=== PATIENT | male | born 1930 | race Caucasian/White ===

== ENCOUNTER 2017-01-11 14:00 | Inpatient (IN) | payer MEDICARE, OTHER ==
[~2017-01-11] VITALS: Ht 177.8 cm; Wt 103.6 kg
--- NOTE | ~2017-01-11 | CON ---
PATIENT'S NAME: MAYLIN VILLAFUERTE [facility] AGE: 86 Y [address] ROOM: [place] [address] LOCATION: [facility] ADMIT DATE: 01/11/2017 Consultation DISCHARGE DATE: FAMILY PHYSICIAN: Christiano Bull MD ATTENDING PHYSICIAN: Linda Guaman REQUESTING PHYSICIAN: This is a consult for Dr. Guaman. HISTORY OF PRESENT ILLNESS: This 86-year-old gentleman is referred for rehabilitation evaluation/GIRP evaluation and admission. He is status post lumbar laminectomy, L1-L2 to relieve spinal stenosis on 01/14/2017, details on the record per Dr. Guaman. He was originally seen for left leg weakness of slow progression. He recently could not stand anymore on the left leg, was falling with decreased sensation through the whole left lower extremity. He did fall frequently maybe at least twice severely without hitting his head, but he felt pain in the left hip. PAST HISTORY OF SIGNIFICANCE: 1. Coronary artery disease, status post CABG x2. First one in the 1971 and second one in 1991. 2. History of paroxysmal atrial fibrillation, on Coumadin at one time. 3. Severe lumbar spinal stenosis, status post surgical procedure. Exact procedure unknown at this time for me. 4. Status post diabetes type 2. 5. 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 6. COPD. 7. Asthma. 8. Gastric reflux disease. 9. Sleep apnea. 10. Dementia. 11. Obesity. He is now alert, oriented, slow in his response and answers but proper. He is now resting, complaining of left hip pain. He cannot move his left lower extremity good at this time. Muscle strength at best is 3 to 3+ with decreased endurance and decreased sensation throughout. Deep tendon reflexes are slow on both sides, left side weaker in knee and ankle. There is no increased tone. Babinski is equivocal. PATIENT'S NAME: MAYLIN VILLAFUERTE [facility] AGE: 86 Y [address] ROOM: [address] [address] LOCATION: [facility] ADMIT DATE: 01/11/2017 Consultation DISCHARGE DATE: FAMILY PHYSICIAN: Christiano Bull MD ATTENDING PHYSICIAN: Linda Guaman PHYSICAL EXAMINATION: VITAL SIGNS: Blood pressure 136/71, temperature 98.6, pulse 90, and respiratory rate 16. He is 5 feet 10 inches tall. Weighs 103.6 kg. NEUROLOGIC: Cranial nerves 2 through 12 are within normal limits. Can move bilateral upper extremities without much difficulty. Muscle strength is 4 to 4+/5. Bilateral lower extremity, he has markedly weak left lower extremity as I mentioned. CURRENT MEDICATIONS: At this time, he is on the following medications: 1. Coumadin. 2. Tramadol. 3. MOM. 4. Fleets. 5. Dulcolax. 6. NaCl 0.9%. 7. Zofran. 8. Valium. 9. Morphine sulfate. 10. Aldactone. 11. Colace. 12. MiraLAX. 13. Theragran-M. 14. Albuterol sulfate. 15. Theophylline. 16. Uloric. 17. Protonix. 18. Imdur. 19. Dulera. 20. Pacerone. 21. Aricept. 22. Glucagon. 23. Glucose. 24. Dextrose. 25. Insulin aspartate mild scale. 26. [place]. ASSESSMENT AND PLAN: Now he is with maximum to moderate assist of one in transfers and cannot really carry weight on the left lower extremity. We will continue his PT, OT, and speech already initiated. I plan to take him PATIENT'S NAME: MAYLIN VILLAFUERTE [facility] AGE: 86 Y [address] ROOM: [place] [address] LOCATION: [facility] ADMIT DATE: 01/11/2017 Consultation DISCHARGE DATE: FAMILY PHYSICIAN: Christiano Bull MD ATTENDING PHYSICIAN: Linda Guaman to rehabilitation for about 3 weeks of intensive rehabilitation, we will brace him as necessary. Do electrical stimulation as necessary. All the above was discussed in detail with him, his and his daughter. They verbalized understanding and agreement. Thank you for this referral. I will get him to rehabilitation for intensive rehabilitation if he is okayed. MD JOSE ELIAS SCHROEDERS/modl /[id number] d: 01/16/[id number] t: 01/18/17 0710, CONSULTATION REPORT
--- NOTE | ~2017-01-11 | CON ---
PATIENT'S NAME: MAYLIN VILLAFUERTE [facility] AGE: 86 Y [address] ROOM: [address] [address] LOCATION: [facility] ADMIT DATE: 01/11/2017 Consultation DISCHARGE DATE: FAMILY PHYSICIAN: PHYSICIAN, UNKNOWN ATTENDING PHYSICIAN: Linda Guaman CHIEF COMPLAINT: Lower back pain with radiation to the left lower extremity as well as numbness and also muscle weakness in the left lower extremity. REASON FOR CONSULTATION: Medical management and also preoperative clearance in case the patient will require surgery for the lumbar spinal stenosis. HISTORY OF PRESENT ILLNESS: This is an 86-year-old male, who was transferred from outside facility over here for severe lumbar spinal stenosis, which causes problems with lower back pain with radiation to the left lower extremity as well as numbness and also muscle weakness in the left lower extremity. The patient was referred over here for Neurosurgery care for possible lumbar laminectomy and decompression. We are being asked to help with medical management and preoperative evaluation. Currently, the only symptom patient complains is lower back pain with radiation to the left lower extremity associated with numbness and some muscle weakness in the left lower extremity. He denies any chest pain or shortness of breath on exertion or at rest. At baseline, patient is a functional individual with METS score more than 4. REVIEW OF SYSTEMS: As mentioned in the history of present illness. All other systems were reviewed and were negative except those mentioned in the history of present illness. PAST MEDICAL HISTORY: 1. Coronary artery disease, status post bypass surgery twice, first one in 1971, second one in 1991. 2. Paroxysmal atrial fibrillation, on Coumadin. 3. Severe lumbar spinal stenosis. 4. Diabetes type 2. 5. History of congestive heart failure, likely systolic type given that he is on Aldactone at home. 6. COPD. 7. Asthma. 8. Gastroesophageal reflux disease. PATIENT'S NAME: MAYLIN VILLAFUERTE [facility] AGE: 86 Y [address] ROOM: [address] [place] [id number] LOCATION: [facility] ADMIT DATE: 01/11/2017 Consultation DISCHARGE DATE: FAMILY PHYSICIAN: , UNKNOWN ATTENDING PHYSICIAN: Linda Guaman 9. Obstructive sleep apnea, and he wears 2.5 L of oxygen nasal cannula at night during sleep. 10. Dementia. 11. Questionable history of lung asbestosis in the past. 12. 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 ALLERGIES: IODINE AND PENICILLIN. PENICILLIN CAUSES HIVES. IODINE, HE DOES NOT REMEMBER WHAT REACTION. HOME MEDICATIONS: Has to be reconciled again by the medical staff in the morning given that the current medication list is incomplete. SOCIAL HISTORY: The patient was a former cigarette smoker. He quit about 70 years ago. He states has he smoked about half per day around 5 to 6 years. He denies any alcohol or any illegal drug use. FAMILY HISTORY: Father has diabetes and also heart problem, but details not clear. Mother has cancer but not sure which type. PAST SURGICAL HISTORY: 1. Right hip surgery. 2. Open heart surgery x2. 3. Appendectomy. 4. Rotator cuff surgery. 5. Umbilical hernia surgery. 6. Cervical spine fusion in the past. PHYSICAL EXAMINATION: VITAL SIGNS: At the time of my evaluation, temperature was 98 and saturation was 96% on 2 L nasal cannula, blood pressure 132/86, respiration 14, heart rate 65. GENERAL APPEARANCE: Alert and oriented x3. Currently, in no acute distress. HEENT: Pupils are equally round and reactive to light. Extraocular muscles intact. Anicteric sclerae. Nasal turbinates are normal bilaterally. Moist oral mucosa. NECK: No JVD. CARDIOVASCULAR: Irregularly irregular rate and rhythm. No murmur, no rubs, no gallops. RESPIRATORY: Clear to auscultation. No rales. No rhonchi. No wheezing. No crackles. PATIENT'S NAME: MAYLIN VILLAFUERTE [facility] AGE: 86 Y [address] ROOM: [address] [address] LOCATION: [facility] ADMIT DATE: 01/11/2017 Consultation DISCHARGE DATE: FAMILY PHYSICIAN: PHYSICIAN, UNKNOWN ATTENDING PHYSICIAN: Linda Guaman ABDOMEN: Obese, soft, nontender, nondistended. Bowel sounds present. No mass. EXTREMITIES: No edema in upper or lower extremities. SKIN: No ulcer, no rash, no cyanosis. NEUROLOGIC: Some decreased sensation and left lower extremity weakness 3/5. Otherwise unremarkable. LABORATORY DATA: CPK 82, troponin less than 0.04, ProBNP 497. White blood cells 6.1, hemoglobin 14.4, hematocrit 43.5, platelet 194. Glucose 118, BUN 25, creatinine 1.5, sodium 142, potassium 4.0, chloride 109, CO2 of 26, calcium 8.3. Total protein 6.9, albumin 3.2, AST 13, ALT 16, alkaline phosphatase 93, total bilirubin 0.3. Anion gap 11, globulin 3.7, A1c 6.6. INR 2.0, PTT 33. GFR 41. CK-MB 2.2. Pre-albumin 28. IMAGING STUDY: Chest x-ray on admission performed from the outside facility based on my review, unremarkable. EKG on admission on January 11, 2017 at 7:14 p.m. shows atrial fibrillation, heart rate of 54 beats per minute, QRS of 98 milliseconds. ASSESSMENT AND PLAN: 1. Regarding his severe lumbar spinal stenosis: Defer to Neurosurgery for further care. Currently, the date of surgery is not clear. Therefore, we will hold the Coumadin, but I am not going to reverse the INR given that we are not sure when is the surgery. Once the date of the surgery is confirmed, we can use vitamin K and fresh frozen plasma to reverse INR to reach the goal of less than 1.5. 2. Regarding his preoperative medical evaluation for noncardiac surgery: From the guideline of the preoperative medical evaluation for noncardiac surgery, the patient currently does not have any active contraindication that will require further additional testing. His METS score is more than 4. He does have a history of coronary artery disease, requiring 2 bypass surgeries in the past, but they are very remote, and he has been doing well without any chest pain since then. His most recent echo with his primary maple products supervisor in [place] was 2 years ago, and it was normal according to the patient. Currently, the patient has no chest pain, no shortness of breath, and there is no finding to suggest heart failure either. EKG showed atrial fibrillation, which is not new for him. The patient is asymptomatic, therefore, the patient does not have any active contraindication at the moment that will require any additional testing before the surgery. However, the patient is at high risk of perioperative and postoperative period for cardiopulmonary complications given the patient's age, prior history of coronary artery disease, history of atrial fibrillation, diabetes, PATIENT'S NAME: NOYKATHI CUMMINGSLinda Watkins [facility] AGE: 86 Y [address] ROOM: [address] [address] LOCATION: [facility] ADMIT DATE: 01/11/2017 Consultation DISCHARGE DATE: FAMILY PHYSICIAN: PHYSICIAN, UNKNOWN ATTENDING PHYSICIAN: Linda Guaman history of chronic systolic congestive heart failure, chronic obstructive pulmonary disease, asthma, and requiring oxygen for sleep apnea with 2.5 L at night. All these comorbidities put the patient at high risk for perioperative and postoperative periods for cardiopulmonary complications. However, as mentioned before, per the guideline of the preoperative medical evaluation for noncardiac surgery, the patient does not require any additional testing before the surgery. The patient understands all the risks of his potential complications that may happen during and after surgery. Further plan will depend on clinical course. 3. Regarding his acute kidney injury or chronic kidney disease: We do not have any records to compare whether he has acute kidney injury or chronic kidney disease. However, I am going to give him IV fluid for hydration given that his BUN is also high, therefore, this is most likely acute kidney injury from prerenal azotemia. Therefore with hydration, we will see how he responds. I will be checking urine electrolytes as well. We will also check a urinalysis, and also Barber catheter insertion for strict in's and out's monitor and rule out postobstructive causes of the acute kidney injury. 4. Regarding his diabetes type 2: We will check A1c, put him on sliding scale insulin with NovoLog a.c., h.s. mild dose while eating, and while n.p.o. we will be using the regular subcutaneous insulin q.4 hours mild dose and titrate as needed. 5. Regarding his history of chronic obstructive pulmonary disease and asthma: Currently, they are not in flare. Continue with nebulizations per RT for RSS and continue Symbicort. 6. Regarding his history of obstructive sleep apnea: Continue oxygen nasal cannula at night 2.5 L or more titrate to saturation more than 94%. 7. Regarding his history of chronic systolic congestive heart failure: Currently, he is not in decompensation. Continue gentle IV fluid hydration for acute kidney injury. Home medications have to be reconciled in the morning before they can be addressed. 8. Regarding his history of paroxysmal atrial fibrillation: Continue home medication including amiodarone, but we will hold the Coumadin in anticipation for possible surgery. 9. Regarding his dementia: Continue Aricept but hold if heart rate less than 60. 10. Regarding his deep venous prophylaxis: He is already on Coumadin. INR is 2.0. Time spent in care on the day of consultation 55 minutes where 10 minutes were spent on chart review, the remainder of the time was spent in interview and physical examination and also on counseling. The counseling includes going on plan of care with the patient and addressing all the questions and concerns that he had to his satisfaction. Further plan will depend on clinical course. PATIENT'S NAME: MAYLIN VILLAFUERTE [facility] AGE: 86 Y [address] ROOM: [place] [address] LOCATION: [facility] ADMIT DATE: 01/11/2017 Consultation DISCHARGE DATE: FAMILY PHYSICIAN: PHYSICIAN, UNKNOWN ATTENDING PHYSICIAN: Linda Guaman PACO MCCARTHY MD CC/dorian /[id number] d: 01/12/17 0119 t: 01/22/17 2123, CONSULTATION REPORT
--- NOTE | ~2017-01-11 | HP ---
PATIENT'S NAME: MAYLIN VILLAFUERTE [facility] AGE: 86 Y [address] ROOM: [address] [place], [place] [address] LOCATION: [facility] ADMIT DATE: 01/11/2017 History & Physical DISCHARGE DATE: FAMILY PHYSICIAN: PHYSICIAN, UNKNOWN ATTENDING PHYSICIAN: Linda Guaman DATE OF SERVICE: 01/11/2017 PATIENT IDENTIFICATION: Maylin Villafuerte is an 86-year-old male. PRESENTING COMPLAINT: Left leg weakness. HISTORY OF PRESENT ILLNESS: The patient's symptoms have been coming on slowly and at first he thought it was his hip. Yesterday, he was hobbling around, but since today he has been unable to stand or move his left leg. The patient has had multiple falls this week on account of progressive weakness of the left leg. The patient had a lumbar MRI scan which showed severe spinal stenosis. He was therefore referred to me for evaluation and treatment. He was originally supposed to see me in the outpatient clinic next week, but because his symptoms have gotten so severe, he came in as an inpatient today. PAST MEDICAL HISTORY: The patient had previous spinal fusion from L3-L5 about a year ago. His surgery was performed by Dr. Feng out [facility]. Other medical problems include previous cervical spinal fusion, right total hip replacement, and coronary artery bypass graft. Other past medical history includes atrial fibrillation, previous appendectomy, previous rotator cuff repair, removal of pilonidal cyst, and umbilical hernia repair. CURRENT MEDICATIONS: 1. Amitiza. 2. Lasix. 3. Cordarone. 4. Glipizide. 5. Aldactone. 6. Aricept. 7. Symbicort. 8. [place]. 9. Potassium chloride. 10. Warfarin. 11. Uloric. PATIENT'S NAME: MAYLIN VILLAFUERTE [facility] AGE: 86 Y [address] ROOM: [address] [place], [place] [address] LOCATION: [facility] ADMIT DATE: 01/11/2017 History & Physical DISCHARGE DATE: FAMILY PHYSICIAN: PHYSICIAN, UNKNOWN ATTENDING PHYSICIAN: Linda Guaman 12. Pro-Air. 13. Imdur. 14. Colace. 15. Protonix. 16. Mickey-[place]. 17. Albuterol. 18. Nitroglycerin as needed. ALLERGIES: IODINE AND PENICILLIN. FAMILY HISTORY: Remarkable for diabetes and organic heart disease in his father and brother, and cancer in the mother and sister. SOCIAL HISTORY: The patient is . He is a former smoker. He does not use alcohol. REVIEW OF SYSTEMS: All the systems were reviewed. The only abnormal findings as described in the history of present illness. PHYSICAL EXAMINATION: GENERAL: The patient is a healthy-looking gentleman who was alert and cooperative through the examination. VITAL SIGNS: Today, blood pressure is 130/67, heart rate is 54, respirations 16, temperature 97.8, saturations 96. NEUROLOGIC: His speech is intact. Cranial nerves no deficits seen. Motor examination, the patient has normal strength in his upper extremities and his lower extremities, right hip is 3+/5, left hip 0/5. Quadriceps 5/5 on the right side. Unable to raise leg on the left side. Dorsiflexors 4 on the right, 3 on the left. Plantar flexors 4 on the right and 3 on the left. CARDIOVASCULAR: Heart sounds are present. RESPIRATORY: The patient is not short of breath at bedside. EXTREMITIES: The patient has no cyanosis or clubbing. SKIN: The patient has some skin bruising from being on Coumadin, especially on the inside of the right arm. HEENT: His head is atraumatic. Eyes and ears, no evidence of trauma. REVIEW OF IMAGING STUDIES: The patient has had a lumbar spine MRI performed on January 08, 2017. The MRI shows severe spinal stenosis at the L2-3 level, just one level above where the patient had prior of fusion. LABORATORY INVESTIGATIONS: PATIENT'S NAME: MAYLIN VILLAFUERTE [facility] AGE: 86 Y [address] ROOM: [address] [address] LOCATION: [facility] ADMIT DATE: 01/11/2017 History & Physical DISCHARGE DATE: FAMILY PHYSICIAN: PHYSICIAN, UNKNOWN ATTENDING PHYSICIAN: Linda Guaman White count is 6.4, hemoglobin is 15. INR is 2.2, it will need to be held prior to the time of surgery. I have held it effective today. Sodium 143, potassium 4.2, chloride 106. BUN 28, creatinine 1.60. ASSESSMENT: An 86-year-old male with back pain and left leg weakness. MRI scan shows severe spinal stenosis on the L2-3 level, one level below the site of patient's previous fusion. MEDICAL DECISION MAKING: I discussed the problem with the patient and explained to him that he will likely need laminectomy and decompression. The patient's family coming by tomorrow and when everybody is here, I will sit down and go over the benefits, risks, and alternatives with them. I have also asked the hospitalist to see the patient to help manage his diabetes and also for preoperative clearance. I look forward to being able to perform the patient's laminectomy to provide him some room for his pinched nerves. We will also get a cervical spine MRI to rule out cervical myelopathy. MD INA ADAMS/modl /[id number] D: [id number] T: [id number] HISTORY & PHYSICAL
--- NOTE | ~2017-01-11 | DS ---
PATIENT'S NAME: MAYLIN VILLAFUERTE [facility] AGE: 86 Y [address] ROOM: [address] [address] LOCATION: G3 ADMIT DATE: 01/11/2017 Discharge Summary DISCHARGE DATE: 01/19/2017 FAMILY PHYSICIAN: Christiano Bull MD ATTENDING PHYSICIAN: Linda Guaman Transferred to inpatient rehab on January 19, 2017. REASON FOR ADMISSION: The patient is an 86-year-old gentleman who presented with difficulty walking and left leg weakness. MRI scan showed severe spinal stenosis. TREATMENT RENDERED: The patient was admitted to the hospital and was scheduled for surgery. Prior to having surgery, he had to be medically cleared. He eventually was taken to the operating room on January 14, 2017. He underwent bilateral laminectomy with decompression of neural elements and foraminotomy without diskectomy at L1-L2 level. The patient had undergone prior spinal fusion from L3 to L5 and this stenosis was right above where he had his previous fusion. During the surgery, the patient had a spinal fluid leak, which was repaired. Postoperatively, the patient did well. His left leg weakness started to improve. He was helped by Physical Therapy. He was evaluated and found to be acceptable to inpatient rehab. The patient was transferred to rehab on January 19, 2017. The patient also has cervical spinal stenosis, and after he has recovered from this lumbar laminectomy, he will likely need cervical decompression as well. He has had prior cervical fusion also. FINAL DIAGNOSES: 1. Lumbar spinal stenosis. 2. Cervical spinal stenosis. 3. Status post lumbar laminectomy and decompression. MD RESHMA ADAMSO/martl /[id number] d: t: 02/04/17 0035, DISCHARGE SUMMARY
--- NOTE | ~2017-01-11 | OR ---
PATIENT'S NAME: MAYLIN [facility]AFU[facility]TE [facility] AGE: 86 Y [address] ROOM: [address] [address] LOCATION: [facility] ADMIT DATE: 01/11/2017 OR/Procedure Report DISCHARGE DATE: FAMILY PHYSICIAN: Christiano Bull MD ATTENDING PHYSICIAN: Linda Guaman SURGEON: Linda Guaman MD COLLEGE ADMISSIONS COUNSELOR: Karolina Matson CST. DATE OF PROCEDURE: 01/14/2017 PREOPERATIVE DIAGNOSIS: Lumbar spinal stenosis. POSTOPERATIVE DIAGNOSIS: Lumbar spinal stenosis. PROCEDURE PERFORMED: 1. Bilateral laminectomy with decompression of neural elements and foraminotomy without diskectomy at L1-L2. 2. Repair of spinal fluid leak intraoperatively. 3. Use of operative microscope. ANESTHESIA: General. HISTORY: The patient is an 86-year-old gentleman, who was admitted with left leg weakness. The patient has had prior lumbar laminectomy and fusion. MRI scan done showed previous spinal fusion from L3-L5. The patient also had severe spinal stenosis at the L1-L2 level. With the patient's left leg weakness and the severity of his stenosis, surgery was recommended. The above procedure, benefits, and risks were discussed with the patient and his family and with their consent, he was brought to the operating room for surgery. Prior to coming to surgery, he had been cleared by internal medicine for his comorbidities. PROCEDURE IN DETAIL: In the operating room, the patient was placed in a supine position. Anesthesia was induced and he was intubated. He was then carefully rolled to a prone position on a Davy table taking care to protect all pressure points. His incision line was marked out as an extension of the previous lumbar incision on his back. The whole area was prepped and draped in a sterile fashion. Local anesthesia was infiltrated. The incision was opened with a #10 blade, and self-retaining retractors were placed. The Bovie was then used to open the fascia and deepen the incision until the tip of the spinous process of L1 was confidently identified. Paraspinous muscles were dissected off the spinous process and lamina of L1. We then identified the edges of the L2 laminectomy, which had been performed previously. Working very carefully, the edges of the laminectomy were exposed and we were able to see the hardware that was used for the patient's spinal fusion surgery. Intraoperative x-ray was obtained at this point, to verify that we were at the PATIENT'S NAME: MAYLIN VILLAFUERTE [facility] AGE: 86 Y [address] ROOM: [id number] [place], [place] [address] LOCATION: [facility] ADMIT DATE: 01/11/2017 OR/Procedure Report DISCHARGE DATE: FAMILY PHYSICIAN: Christiano Bull MD ATTENDING PHYSICIAN: Linda Guaman L1-L2 level which was where the patient had severe stenosis. Laminectomy was then commenced by removing the laminae of the L1 vertebra. Working from the intact area to the area where the patient has had surgery. The rongeur was used to remove the spinous process and lamina of L1. The dura was exposed. Working from rostral to caudal, more dura was exposed. It was necessary to remove some parts of the edges of the L2 vertebra to get full decompression. The patient was exceedingly stenotic at the L1-L2 level. While removing some of the lamina from the edge of the L2 lamina on the left side, an unintended durotomy occurred. Initially, it was on arachnoid bulge, but during the surgery the arachnoid bulge began to leak spinal fluid. I therefore felt that a formal dural repair was necessary. Microscope was brought in at this point, and under microscopic vision, the area of dural suppression was repaired with 5-0 Nurolon. Father decompression continued into the foramina. The L1-L2 foramina on both sides was identified and the nerve roots were seen. Decompression continued until some of the scar tissue over L2 was removed to fully decompress the dura. At the end of the procedure, I felt that the laminectomy had achieved this proposal for relieving stenosis at L1-L2. The incision was then copiously irrigated and hemostasis was achieved. The edges of the laminectomy were waxed thoroughly. The piece of dura repair was laid over the area where the dura had been repaired. The incision was then closed in layers using appropriate suture materials. A sterile dressing was applied. The patient was rolled back to a supine position. His anesthesia was reversed. He was extubated and taken to the recovery room to complete his recovery. I was present and performed every aspect of this procedure, assisted at different stages by operating room nurses. There were no apparent intraoperative complications. Swabs, needles, and instruments were all accounted for at the end of the case. Estimated blood loss was less than 500 mL and there was no reason for blood transfusion. I expect the patient to benefit from this procedure, but his recovery is likely to be slow given the severity of his compression and the amount of disability he had going into surgery. MD INA ADAMS/dorian PATIENT'S NAME: MAYLIN VILLAFUERTE [facility] AGE: 86 Y [address] ROOM: [place] [address] LOCATION: [facility] ADMIT DATE: 01/11/2017 OR/Procedure Report DISCHARGE DATE: FAMILY PHYSICIAN: Christiano Bull MD ATTENDING PHYSICIAN: Linda Guaman /[id number] d: [birth year] t: 01/20/17 1700, OPERATIVE SUMMARY
[2017-01-11] MEDS ORDERED: PROAIR RESPICL90 MCG INH (16:57)
[2017-01-11] MEDS ORDERED: CORDARONE,PACE200 MG PO (16:58)
[2017-01-11] MEDS ORDERED: SYMBICORT 16010.2 GM INH (17:00)
[2017-01-11] MEDS ORDERED: GLUCOTROL10 MG PO (17:01)
[2017-01-11] MEDS ORDERED: ARICEPT 5 MG5 MG PO (17:01)
[2017-01-11] MEDS ORDERED: MACULAR VITAMI1 EACH PO (17:06)
[2017-01-11] MEDS ORDERED: PROTONIX40 MG PO (17:08)
[2017-01-11] MEDS ORDERED: ALDACTONE25 MG PO (17:09)
[2017-01-11] MEDS ORDERED: MIRALAX17 GM PO (17:09)
[2017-01-11] MEDS ORDERED: THEODUR PO (17:12)
[2017-01-11] MEDS ORDERED: IMDUR60 MG PO (17:13)
[2017-01-11] MEDS ORDERED: K-TAB 10MEQ10 MEQ PO (17:14)
--- NOTE | 2017-01-11 17:31 | NUR ---
Patient is interesting 86 yo male admitted this evening for c/o back pain and inability to move left leg. patient states he wasn't doing too badly. yesterday he came to [employer] for his and another woman to shop. He states he stayed in the care for most of the time. did use a walker to "hobble around". states that sometime during the night, his left butt cheek went numb. states he was not able to get up this am. cannot move left leg voluntarily. saline lock is noted in right forearm without erythema or edema noted at the site. patient is pleasant and answers questions well. does have INAJA. education is given as documented. patient denies questions. pneumatics are on bilat calves. pt geoffrey well. red socks on patient. report is given to JERMAINE John.
[2017-01-11 19:19] LABS: BASOPHIL % 0.5 %; EOSINOPHIL # 0.1 K/uL (0.0-0.5); EOSINOPHIL % 1.6 %; HEMATOCRIT 43.5 % (33.0-50.0); HEMOGLOBIN 14.4 g/dL (11.0-16.0); IMMATURE GRANULOCYTE % 0.2 %; LYMPHOCYTE # 2.4 K/uL (0.8-4.0); LYMPHOCYTE % 39.5 %; MCH 32.3 pg (27.0-34.0); MCHC 33.1 gm/dL (32.0-36.5); MCV 97.5 fl (83.0-98.0); MONOCYTE # 0.6 K/uL (0.0-1.0); MONOCYTE % 10.5 %; MPV 8.4 fl (9.4-12.4); NEUTROPHIL # (ANC) 2.9 K/uL (1.4-9.0); NEUTROPHIL % 47.7 %; NRBC % 0 /100WBC (0-0.00); PLATELET COUNT 194 K/uL (150-450); RBC 4.46 M/uL (3.50-5.50); RDW-CV 15.1 % (11.9-14.6); WBC 6.1 K/uL (4.0-11.0)
--- NOTE | 2017-01-11 19:27 | NUR ---
Significant Event: ARRIVED TO ROOM AT 1530...UNABLE TO LIFT LEFT LEG OFF BED, DORSAL/PLANTER FLEXION WEAK ON L) STRONG ON RIGHT...HAND GRASP STRONG. HAD CHEST PAIN THIS AM, BUT CRADIAC WORKUP WAS NEG, HAS NUMEROUS HEALTH PROBLEMS.. Follow up:
[2017-01-11 19:31] LABS: PROTIME 21.1 SECONDS (9.8-11.4); PTT 33 SECONDS (25-32)
[2017-01-11 19:38] LABS: ALBUMIN 3.2 gm/dL (3.5-5.0); CALCIUM 8.3 mg/dL (8.5-10.5); CREATININE 1.5 mg/dL (0.6-1.3); TOTAL BILIRUBIN 0.3 mg/dL (0.0-1.5); TOTAL PROTEIN 6.9 g/dL (6.0-8.4)
[2017-01-11 21:33] LABS: CPK 82 IU/L (35-332)
[2017-01-12 01:58] LABS: BILIRUBIN URINE NEGATIVE (NEGATIVE); BLOOD URINE 10 /UL (NEGATIVE); COLOR URINE YELLOW (YELLOW); GLUCOSE URINE NEGATIVE (NEGATIVE); KETONE URINE NEGATIVE (NEGATIVE); LEUKOCYTES URINE NEGATIVE /UL (NEGATIVE); NITRITE URINE NEGATIVE (NEGATIVE); PROTEIN URINE 30 mg/dL (NEGATIVE); TURBIDITY URINE CLEAR (CLEAR); UROBILINOGEN URINE NORMAL (NORMAL)
[2017-01-12 02:08] LABS: RBC URINE RARE #/HPF (NEGATIVE); WBC URINE NEGATIVE #/HPF (NEGATIVE)
[2017-01-12 02:09] LABS: BACTERIA URINE NEGATIVE (NEGATIVE); EPITHELIAL URINE 0-2 #/HPF (NEGATIVE)
--- NOTE | 2017-01-12 05:12 | NUR ---
SIGNIFICANT EVENT: Pt alert &oriented. Bedrest. Bradycardic - heart and BP meds held at HS. ACHS accuchecks - No coverage for 112 BG. Unable to move L) leg, numb and tingling - plan for surgery Saturday. Daughter is [place]. Tele on, no calls. Barber placed and patent. ADA diet. Pleasant and cooperative with cares.
[2017-01-12 07:59] LABS: INR - (THERAPEUTIC) 1.77 (0.92-1.07); PROTIME 18.7 SECONDS (9.8-11.4)
[2017-01-12] MEDS ORDERED: AMITIZA24 MCG PO (07:59)
[2017-01-12] MEDS ORDERED: NORCO 5-325 TA1 EACH PO (08:01)
[2017-01-12] MEDS ORDERED: LASIX80 MG PO (08:01)
[2017-01-12] MEDS ORDERED: ULORIC80 MG PO (08:02)
[2017-01-12] MEDS ORDERED: COUMADIN ** IA5 MG PO (08:02)
[2017-01-12 08:03] LABS: ANION GAP 10.1 (10.0-19.0); CALCIUM 8.6 mg/dL (8.5-10.5); CREATININE 1.3 mg/dL (0.6-1.3); POTASSIUM 4.1 mMol/L (3.7-5.1)
[2017-01-12] MEDS ORDERED: COLACE100 MG PO (08:03)
[2017-01-12] MEDS ORDERED: PROAIR HFA8.5 GM INH (08:04)
[2017-01-12] MEDS ORDERED: NITROSTAT 0.40.4 MG PO (08:05)
--- NOTE | 2017-01-12 12:48 | NUR ---
(-)MST; VISITED WITH PT AND HE REPORTS THAT HE LOST 40 LBS ABOUT 2 YEARS AGO WHEN HE WAS SICK. WT HAS BEEN STABLE SINCE THAT INITITAL LOSS. PT REPORTS THAT HIS APPETITE IS GOOD, "PROBABLY TOO GOOD." WILL ASSIST NEEDED
[2017-01-12 17:17] LABS: BASOPHIL % 0.6 %; EOSINOPHIL # 0.1 K/uL (0.0-0.5); EOSINOPHIL % 1.7 %; HEMATOCRIT 40.5 % (33.0-50.0); HEMOGLOBIN 13.4 g/dL (11.0-16.0); IMMATURE GRANULOCYTE % 0.1 %; LYMPHOCYTE % 27.6 %; MCH 32.4 pg (27.0-34.0); MCHC 33.1 gm/dL (32.0-36.5); MCV 97.8 fl (83.0-98.0); MONOCYTE # 0.6 K/uL (0.0-1.0); MONOCYTE % 8.2 %; MPV 8.7 fl (9.4-12.4); NEUTROPHIL # (ANC) 4.5 K/uL (1.4-9.0); NEUTROPHIL % 61.8 %; NRBC % 0 /100WBC (0-0.00); PLATELET COUNT 186 K/uL (150-450); RBC 4.14 M/uL (3.50-5.50); RDW-CV 15.1 % (11.9-14.6); WBC 7.2 K/uL (4.0-11.0)
--- NOTE | 2017-01-12 17:23 | NUR ---
Significant Event: PT ALERT AND ORIENTED. UP IN THE ROOM WITH 1-2 ASSIST. DOES PRETTY WELL. AMBULATED TO THE BATHROOM WITH 1 ASSIST. ELIZABETH CATH INTACT. 500 OUT THIS SHIFT. IV HEPARIN TO BE STARTED. PT WILL PROBABLY HAVE SURGERY ON SATURDAY PER DR ROONEY. FAMILY IN THE ROOM THIS SHIFT. UP IN THE RECLINER FOR MEALS. REFUSES PAIN MEDS RATES PAIN AT A 4. Follow up:
[2017-01-12 17:32] LABS: PROTIME 15.8 SECONDS (9.8-11.4)
[2017-01-12] MEDS ORDERED: THEOPHYLLINE400 MG PO (18:12)
[2017-01-13 05:41] LABS: ALBUMIN 2.8 gm/dL (3.5-5.0); ANION GAP 12.2 (10.0-19.0); CALCIUM 8.2 mg/dL (8.5-10.5); CREATININE 1.4 mg/dL (0.6-1.3); MAGNESIUM 2.2 mg/dL (1.8-2.6); PHOSPHORUS 2.9 mg/dL (2.5-4.9); POTASSIUM 4.2 mMol/L (3.7-5.1)
--- NOTE | 2017-01-13 07:16 | NUR ---
SIGNIFICANT EVENT: VSS. IV ACCIDENTALLY DC'D AND REMOVED TO R)WRIST. RESTARTED NEW IV TO L) FA. RUNNING HEPARIN AT 1700, INCREASED BY 200 PER HEPARIN PROTOCOL AND RECEIVED 3000 BOLUS. UP WITH 1 ASSSIT, GAIT BELT AND WALKER. BACK SURGERY ON SATURDAY AND MRI OF NECK ON SATURDAY?
--- NOTE | 2017-01-13 17:07 | NUR ---
Significant Event: pt alert and oriented. up in the room with 1 assist. geoffrey fairly well. has weakness on lt leg and arm. transfers with 1 assist to the bathroom. large bm today. hull cath remains intact. iv heparin infusing. turn off 6 hours before or. possibly tomorrow. family in the room today. wants him to go to a swing bed or retirement after surgery. unable to care for him. surgery will be at 0730 tomorrow Follow up:
[2017-01-14 01:09] LABS: BASOPHIL % 0.5 %; EOSINOPHIL # 0.2 K/uL (0.0-0.5); EOSINOPHIL % 2.4 %; HEMATOCRIT 38.9 % (33.0-50.0); HEMOGLOBIN 12.8 g/dL (11.0-16.0); IMMATURE GRANULOCYTE % 0.5 %; LYMPHOCYTE # 2.3 K/uL (0.8-4.0); LYMPHOCYTE % 34.6 %; MCH 31.8 pg (27.0-34.0); MCHC 32.9 gm/dL (32.0-36.5); MCV 96.8 fl (83.0-98.0); MONOCYTE # 0.6 K/uL (0.0-1.0); MONOCYTE % 9.1 %; MPV 8.9 fl (9.4-12.4); NEUTROPHIL # (ANC) 3.5 K/uL (1.4-9.0); NEUTROPHIL % 52.9 %; NRBC % 0 /100WBC (0-0.00); PLATELET COUNT 178 K/uL (150-450); RBC 4.02 M/uL (3.50-5.50); WBC 6.6 K/uL (4.0-11.0)
[2017-01-14 01:22] LABS: ALBUMIN 2.8 gm/dL (3.5-5.0); CALCIUM 8.2 mg/dL (8.5-10.5); CREATININE 1.3 mg/dL (0.6-1.3); TOTAL BILIRUBIN 0.3 mg/dL (0.0-1.5); TOTAL PROTEIN 6.1 g/dL (6.0-8.4)
--- NOTE | 2017-01-14 03:27 | NUR ---
Shift Summary: Patient can ambulate with one assist. Heparin drip turned off at 0100 this morning for 0630 surgery. Has been NPO since 0 last night. Has left sided weakness. Numbness/tingling to left side of body. Has hull cath. Is on AC&HS accuchecks. Did not require insulin at bedtime.
[2017-01-14 04:25] LABS: INR - (THERAPEUTIC) 1.34 (0.92-1.07); PROTIME 14.1 SECONDS (9.8-11.4)
--- NOTE | 2017-01-14 14:20 | NUR ---
Introduced self/role to patients daughter Teresa whom identified herself as the POA. She stated her dad gets very confused after surgeries and may take a few days for him to clear up. Unsure where he will want to go but okay to start referrals to [facility], [facility], [facility] [place] and [facility]. NO to [facility]. His family doctor is Prosper Bull. Early possible discharge would be end of the week. Added my name to the marker board, will follow. Teresa's #[phone]. Teresa reports patient was last at [facility]. 1435 Called Namrata at [facility], patient there September 12 thru October 15. They are full, with no planned discharges. 1440 Called [facility] and spoke to Meli, faxed referral. 1450 Called [facility] in [place], they are full with a waiting list but would take if they had a opening. 1615 Meli from [facility] called and no admissions for them this week. Will try [facility] tomorrow.
--- NOTE | 2017-01-14 17:07 | NUR ---
Significant Event: PT ALERT AND ORINETED. CONFUSED ON OCC. PT IS FLAT DUE TO DERA TEAR REPAIR FOR 48 HOURS. ORDERS SAY BEDREST NOT SURE IF HER TURN SIDE TO SIDE. LAST HOURLY VITAL SIGN AT 1915. ELIZABETH CATH PATENT. IV FLUIDS CONT. DENIES NEED FOR PAIN PILLS. DAUGHTER IN THE ROOM DR ROONEY NEEDS TO COME AND SEE THEM. DRESSING TO MID BACK DRY. MEPILEX ON LT LOWER BACK COVERS SKIN TEAR. Follow up:
--- NOTE | 2017-01-15 03:47 | NUR ---
Pt. alert and oriented when asked but can become confused at times. Bed alarms on at times. Pt. is flat for 48 hours however Obasi said head can be raised no more than 25 degrees until further orders. Barber cath patent and draining. Refuses to takes pain pills. VSS. O2 - 0.5L. IV in R) arm - saline locked this shift. IV L) arm - saline locked. Dressing to back and lower back clean, dry, and intact. Takes pills whole with water. Slept most of shift. Coopeartive with cares.
[2017-01-15 05:36] LABS: BASOPHIL % 0.3 %; EOSINOPHIL % 0.2 %; HEMATOCRIT 40.3 % (33.0-50.0); HEMOGLOBIN 13.3 g/dL (11.0-16.0); IMMATURE GRANULOCYTE % 0.3 %; LYMPHOCYTE # 1.7 K/uL (0.8-4.0); LYMPHOCYTE % 17.6 %; MCV 97.1 fl (83.0-98.0); MONOCYTE # 1.1 K/uL (0.0-1.0); MONOCYTE % 10.8 %; MPV 8.7 fl (9.4-12.4); NEUTROPHIL # (ANC) 6.9 K/uL (1.4-9.0); NEUTROPHIL % 70.8 %; NRBC % 0 /100WBC (0-0.00); PLATELET COUNT 187 K/uL (150-450); RBC 4.15 M/uL (3.50-5.50); RDW-CV 15.4 % (11.9-14.6); WBC 9.8 K/uL (4.0-11.0)
[2017-01-15 05:49] LABS: ALBUMIN 3.2 gm/dL (3.5-5.0); ANION GAP 10.3 (10.0-19.0); CALCIUM 8.9 mg/dL (8.5-10.5); CREATININE 1.4 mg/dL (0.6-1.3); PHOSPHORUS 2.8 mg/dL (2.5-4.9); POTASSIUM 4.3 mMol/L (3.7-5.1)
--- NOTE | 2017-01-15 09:50 | NUR ---
Left a message for [facility] if [facility] had a bed? 1000 Sarai from [facility] called, can check with them later in the week if something opens up. 1040 La called back, faxed referral. 1150 Spoke to patient and daughter. Another option for placement would be [facility]. 1315 La called and she will come at 0830 to assess. 1445 Update patient and daughters.
--- NOTE | 2017-01-15 10:55 | NUR ---
Received orders for post-operative physical therapy evaluation. Pt is currently on bed rest status until 01/16/17 at 1230, so will attempt to see pt then for treatment. Did introduce myself to pt and daughter at bedside this AM and discussed physical therapy POC. No current needs at this time from pt or family. Leonora Lu, PT 01/15/17
--- NOTE | 2017-01-15 17:11 | NUR ---
Significant Event:PT. ALERT AND FOR THE MOST PART COHERENT TODAY. FAMILY HERE. REMAINS ON BEDREST WITH HOB LESS THAN 25%. ON BED SQUIRES SEVERAL TIMES BUT PASSES ONLY FLATUS. EATING POORLY. TURNED Q 2 HOURS. ELIZABETH DRAINING CLEAR YELLOW URINE. BACK DRESSING D/I. RFA ABD LFA IV S/L'D. L-2 REPAIR. ON 1L PER NC. BLOOD SUGARS AC AND HS WNL. NEURO CHECKS GOOD. HX OF LEFT SIDED WEAKNESS. Follow up:
--- NOTE | 2017-01-16 03:45 | NUR ---
Patient is alert and oriented, but can be confused. He is on 24 hour bedrest, HOB can be elevated slightly, until 1200 today. Sunil is patent with 650ml out. Tele on with no calls. He will undress himself and has taken his tele off once this shift. Has not had a BM this shift but is passing a lot of gas.
--- NOTE | 2017-01-16 11:30 | NUR ---
Spoke to [facility] about a possible referral to them.
--- NOTE | 2017-01-16 13:58 | NUR ---
A-SCREENED D/T LOS S/P DERA TEAR REPAIR ON 01/14. COULD ONLY RAISE HEAD OF BED TO 25 DEGREES X 48 HOURS. HT: 70 IN. WT: 103.6 KG. IBW: 75 KG. BMI: 32.7 LABS: NA 140, K+ 4.3, GLU 134, BUN 19, ROCK DRILL OPERATOR 1.4, ALB 3.2 MEDS: ARICEPT, NOVOLOG (MILD SS), ULTRAM, PRN BOWEL MEDS, ZOFRAN, VALIUM, MORPHINE, ALDACTONE, COLACE, MVI DIET RX: CONSISTENT CARB. PO INTAKE HAS BEEN GOOD; 75-100% UP UNTIL SURGERY AND HAVING TO LAY FLAT. EXPECT PO INTAKE TO IMPROVE NOW THAT PT CAN ELEVATE IN BED. EST NUTR NEEDS: 5401-0159 KCALS (15-20 KCALS/KG) 83-104 GM PROTEIN (0.8-1.0 GM/KG) 1 ML FLUID/KCAL D-NOT AT NUTRITION RISK; NO NUTRITION DX IDENTIFIED I-WILL F/U PO INTAKE AND POC IN 5-6 DAYS
--- NOTE | 2017-01-16 15:06 | NUR ---
Significant Event: Patient alert. Confused at times. Speech slow. Dressing dry and intact to back. Buttocks reddened with oper area to lt buttoc. C/O numbness to left leg and arm. Barber patent. Abdomen round and distended. MOM given along with routine laxatives. 3 small loose bm's. MRI of headed ordered. Accuchecks 164, 170 Follow up:
[2017-01-16 16:57] LABS: BICARBONATE 29.8 mmol/L (18.0-23.0); PCO2 41 mmHg (35-45); PO2 67 mmHg (80-90)
--- NOTE | 2017-01-17 05:17 | NUR ---
Shift Summary: Patient oriented to name only at the beginning of the shift with garbled dysphagic speech. Has become more alert throughout the night, but is still dioriented to place and time. Any activity tires him out. Wearing O2 at 2L through the night. No complaints of pain. Barrier island dressing to lower back is free from drainage. Removing hull before the end of the shift. Lift for transfers.
[2017-01-17 06:03] LABS: INR - (THERAPEUTIC) 1.14 (0.92-1.07)
--- NOTE | 2017-01-17 10:40 | NUR ---
[facility] called and she got authorization for [facility] Saturday, will plan to take at 0900. 1300 Let Rosanna Rodrigues know about GIRP. 1315 Left a note on the chart, orders on the chart, packet start, charge nurse Caroline informed, called patients daughter Teresa, informed patient and update his discharge board. IMM reviewed and updated.
--- NOTE | 2017-01-17 13:38 | NUR ---
[facility] called and they can accept patient when he is medically stable to come. Will plan for Saturday at 0900 but can be adjusted. 1300 Let Rosanna Rodrigues know about [facility]IRP. 1315 left a note on the chart, orders on the chart, packet start, charge nurse Caroline informed, called patients daughter Teresa, informed patient and update his discharge board. IMM reviewed and updated.
--- NOTE | 2017-01-17 16:08 | NUR ---
PATIENT UP TO CHAIR FOR SEVERAL HOURS TODAY. AMBULATED A FEW STEPS WITH MAX OF 2 ASSIST, BSC X 4-PASSING CLEAR MUCUS FLUID AND FLATUS. GIVEN DULCOLAX SUPP THIS PM WITHOUT RESULTS. DO HAVE NEW ORDER FOR MAG CITRATE BOTTLE WHICH i WILL GIVE BEFOER END OF SHIFT. VOIDING QS. ABDOMEN ROUND AND SEMIFIRM, BOWEL SOUNDS PRESENT. LUNGS CLEAR DIMINISHED, USE O2 AT NIGHT, BROUGHT IN CPAP. SMALL LEFT BUTTOCK ABRAHSION-MOISTURE BARRIER ISLAND APPLIED. NUMBNESS TO LEFT ARM AND LEG. ORIENTATED X [address] BACK DRESSING D/I. FOOT DROP BRACE ON MOST OF DAY EXCEPT WHEN AMBULATING. VSS. EATING WELL. FAMILY VISITED TODAY.
--- NOTE | 2017-01-17 22:04 | NUR ---
PATIENT UP TO BEDSIDE COMMODE WITH 2 ASSIST, WALKER, GAITBELT. HAD MODERATE VOID, NO BM.
--- NOTE | 2017-01-18 05:08 | NUR ---
Significant Event: Alert and oriented, X3 (forgeful to day of week). Pt seems more alert this am. Vital signs are stable. Wearing CPAP most of night. Did place him on 2.5L 02 for a couple hours when reufsed to wear CPAP. Headache off/on. Denies numbness and tingling this am. LLE weaker comared to RLE. Foot drop boot to L) foot. Had x-large loose BM this am. Up to bedside commode with 2 person assist, gait belt and walker. Turned q 2 hr. Buttocks red/purplish in color. Voiding without difficulty. Dressing to back is CDI. IV SL'd. Denies pain when asked. Follow up: GIRP saturday.
[2017-01-18 06:05] LABS: INR - (THERAPEUTIC) 1.16 (0.92-1.07); PROTIME 12.2 SECONDS (9.8-11.4)
--- NOTE | 2017-01-18 08:40 | NUR ---
Cornelia from [facility] called to see if patient was able to come today since they had a cancelation? [phone] Spoke to Rosanna Rodrigues and charge Caroline, they thought it would be fine but Dr. Guaman is in surgery. Called Cornelia, decided to just leave as planned for Saturday. 1029 Called [facility] to cancel the referral.
--- NOTE | 2017-01-18 12:40 | NUR ---
Student nurse provided patient cares from 0630 to 1230. Viri Mathur RN, [facility] Instructor
--- NOTE | 2017-01-18 19:40 | NUR ---
Significant Event: UP TO COMMODE WITH 1-2 ASSIST, TOLERTES WELL. ABLE TO AMBUL TO DOORWAY. VOIDS WELL HAD 2 LARGE BM. CSM GOOD IN FEET , LEEFT SLIGHTLY WEAKER THAN LEFT..HAD 4 UNITS INSULIN THIS NOON, REFUSED OAIN MED WHEN OFFERED. BACK DRSG CHANGED. MAYA INTACT. Follow up:
--- NOTE | 2017-01-19 03:36 | NUR ---
Significant Event: PATIENT ALERT, FORGETFUL AT TIMES. BED AND CHAIR ALARM IN USE. VSS. TAKING PO AND VOIDING WITHOUT DIFFICULTY. UP WITH 1-2 ASSIST TO COMMODE ONLY WITH WALKER AND GAIT BELT. ONLY ABLE TO TAKE A FEW STEPS. CONTINUES TO HAVE L) LE WEAKNESS. L) FOOT DROP BOOT ON. TURNED Q 2 HOURS D/T SORE BOTTOM. MEPILEX DRESSING TO BACK C/D/I. REFUSED CPAP LAST NOC - ON 2.5 L O2. PLEASANT AND COOPERTIVE WITH CARES. Follow up: TRANFER TO [facility] TODAY AT 0900.
[2017-01-19 05:56] LABS: INR - (THERAPEUTIC) 1.47 (0.92-1.07); PROTIME 15.5 SECONDS (9.8-11.4)
--- NOTE | 2017-01-19 09:23 | NUR ---
Significant Event: Ambulates with 1-2 assist, gaitbelt and walker. L) foot drop boot. Voids without difficulty. Last BM 01/19. Accuchecks ACHS. L) leg weaker. Dressing to back C/D/i. Titrated to room air. Had bloody nose this am, patient states due to oxygen. Follow up:
== END 2017-01-19 10:55 | DRG 518 ==
LOC: G3N 15:23
PROVIDERS: Internal Medicine; Physician Assistant; ADMIT Neurological Surgery
PROC: 00NY0ZZ Release Lumbar Spinal Cord, Open Approach (ICD-10-PCS; principal; 2017-01-14)
DX: M48.06 Spinal stenosis, lumbar region (principal); G93.40 Encephalopathy, unspecified; N17.9 Acute kidney failure, unspecified; I13.0 Hypertensive heart and chronic kidney disease with heart failure and stage 1 through stage 4 chronic kidney disease, or unspecified chronic kidney disease; I50.22 Chronic systolic (congestive) heart failure; F03.90 Unspecified dementia, unspecified severity, without behavioral disturbance, psychotic disturbance, mood disturbance, and anxiety; G47.33 Obstructive sleep apnea (adult) (pediatric); I25.10 Atherosclerotic heart disease of native coronary artery without angina pectoris; I48.0 Paroxysmal atrial fibrillation; J44.9 Chronic obstructive pulmonary disease, unspecified; M79.2 Neuralgia and neuritis, unspecified; Z79.01 Long term (current) use of anticoagulants; Z87.19 Personal history of other diseases of the digestive system; Z88.0 Allergy status to penicillin; Z88.8 Allergy status to other drugs, medicaments and biological substances; Z87.891 Personal history of nicotine dependence; Z95.5 Presence of coronary angioplasty implant and graft; Z96.641 Presence of right artificial hip joint; E11.22 Type 2 diabetes mellitus with diabetic chronic kidney disease; N18.9 Chronic kidney disease, unspecified
CPT/HCPCS: J0690; J1100; J1644; J2405; J7030